=== PATIENT | female | born 1950 | race Caucasian/White ===

== ENCOUNTER 2017-03-21 20:47 | Emergency (ER) | payer MEDICARE, OTHER ==
[2017-03-21] MEDS ORDERED: KETOROLAC 60 MG/2 ML VIAL IM STA (21:16)
[2017-03-21] MEDS ORDERED: ORPHENADRINE 30 MG/ML 2 ML VIAL IM STA (21:16)
--- NOTE | 2017-03-21 21:26 | ED ---
General Adult HPI - General Chief complaint: Back Pain/Injury Stated complaint: Back/hip pain Time Seen by Provider: 03/21/17 20:55 Source: patient, family, RN notes reviewed Mode of arrival: wheelchair Limitations: no limitations - History of Present Illness Initial comments: 67-year-old female presents to the emergency room chief complaint of left-sided back pain. Last Saturday she felt at that she tweaked her back. She went to the clinic on Saturday morning and she was given a prescription for muscle relaxers. She then went to work and since she's been feeling worse. The pain is in the left side of her back. She states any movement any bending any twisting causes her pain. She states even hardly get out of bed due to the discomfort. She's had no fever chills nausea or vomiting with this. She's been taking Ultram and she cannot take anything stronger narcotic marcelino due to side effects that has not been helping her as much. She has been taking minimal Flexeril. They state that the pain is just to the point where she is having hard time even getting to the bathroom so they thought that they should be re-seen. There has been no falls. It does not radiate down the leg but does radiate into the left back. Patient denies any recent fever, chills, shortness of breath, chest pain, abdominal pain, nausea vomiting, numbness or tingling, dysuria or hematuria, constipation or diarrhea, headaches or visual changes, or any other current symptoms. - Related Data Home Medications Medication Instructions Recorded Confirmed Atorvastatin [Lipitor] 40 mg PO HS 03/21/17 03/21/17 Cyclobenzaprine [Flexeril] 5 mg PO BID PRN 03/21/17 03/21/17 Losartan Potassium [Cozaar] 25 mg PO DAILY 03/21/17 03/21/17 Naproxen [Naprosyn] 500 mg PO BID PRN 03/21/17 03/21/17 methylPREDNISolone [Medrol Dose See Taper PO DIRECTED 03/21/17 03/21/17 Pack] traMADol HCL [Ultram] 50 mg PO Q6HR PRN 03/21/17 03/21/17 Previous Rx's Medication Instructions Recorded Diazepam [Valium] 2 mg PO BID #10 tab 03/21/17 Orphenadrine [Norflex] 100 mg PO Q12H #10 tablet.er 03/21/17 traMADol HCl [Ultram] 50 mg PO Q6H PRN #20 tab 03/21/17 Allergies Allergy/AdvReac Type Severity Reaction Status Date / Time No Known Allergies Allergy Verified 03/21/17 21:20 Review of Systems ROS Statement: Those systems with pertinent positive or pertinent negative responses have been documented in the HPI. ROS Other: All systems not noted in ROS Statement are negative. Past Medical History Past Medical History: Hyperlipidemia, Hypertension History of Any Multi-Drug Resistant Organisms: None Reported Past Surgical History: Orthopedic Surgery, Tonsillectomy Additional Past Surgical History / Comment(s): parathyroid, right hand Past Psychological History: No Psychological Hx Reported Smoking Status: Never smoker Past Alcohol Use History: None Reported Past Drug Use History: None Reported General Exam - General Exam Comments Initial Comments: General: The patient is awake and alert, in no distress, and does not appear acutely ill. Eye: Pupils are equal, round and reactive to light, extra-ocular movements are intact; there is normal conjunctiva bilaterally. No signs of icterus. Ears, nose, mouth and throat: There are moist mucous membranes and no oral lesions. Neck: The neck is supple, there is no tenderness. Cardiovascular: There is a regular rate and rhythm. No murmur, rub or gallop is appreciated. Respiratory: Lungs are clear to auscultation, respirations are non-labored, breath sounds are equal. No wheezes, stridor, rales, or rhonchi. Gastrointestinal: Soft, non-distended, non-tender abdomen without masses or organomegaly noted. There is no rebound or guarding present. No CVA tenderness. Bowel sounds are unremarkable. Back: There is no tenderness to palpation in the midline. There is no obvious deformity. No rashes noted. Musculoskeletal: Normal ROM, no tenderness, There is no pedal edema. There is no calf tenderness or swelling. Sensation intact. Pulses equal bilaterally 2+. Negative straight leg raise bilaterally. Neurological: CN II-XII intact, There are no obvious motor or sensory deficits. Coordination appears grossly intact. Speech is normal. Skin: Skin is warm and dry and no rashes or lesions are noted. Psychiatric: Cooperative, appropriate mood & affect, normal judgment. Limitations: no limitations Course Vital Signs 03/21/17 20:57 Temperature 97.4 F L Pulse Rate 103 H Respiratory 20 Rate Blood Pressure 182/104 O2 Sat by Pulse 100 Oximetry Medical Decision Making - Medical Decision Making 67-year-old female presents emergency department with chief complaint of back pain. Patient does admit to history of this back pain in the past. At this time patient's pain has improved with the injections and CAT scan is reviewed. We discussed continued outpatient follow-up return parameters all questions. Patient stated she understood and she is agreement this plan. All questions have been answered. She'll be discharged. - Radiology Data Radiology results: report reviewed, image reviewed Disposition Clinical Impression: Strain of lumbar region Disposition: HOME SELF-CARE Condition: Stable Instructions: Acute Low Back Pain (ED) Additional Instructions: Please use medication as discussed. Please follow up with family doctor if symptoms have not improved over the next two days. Please return to the emergency room if your symptoms increase or worsen or for any other concerns. Prescriptions: Diazepam [Valium] 2 mg PO BID #10 tab Orphenadrine [Norflex] 100 mg PO Q12H #10 tablet.er traMADol HCl [Ultram] 50 mg PO Q6H PRN #20 tab PRN Reason: Pain Referrals: Eran Moreau MD [Primary Care Provider] - 1-2 days Time of Disposition: 22:05
--- NOTE | 2017-03-21 21:50 | CT ---
EXAMINATION TYPE: CT lumbar spine wo con DATE OF EXAM: 03/21/2017 9:35 PM COMPARISON: NONE HISTORY: Lower back pain radiating into left hip. CT DLP: 781.8 mGycm Automated exposure control for dose reduction was used. Unenhanced CT of the lumbar spine was performed. Bone and soft tissue window settings are submitted as well as coronal and sagittal reconstructions. FINDINGS: Visualized portions of the lungs are clear. There is mild atheromatous calcification of the aorta. Paraspinal soft tissues are otherwise unremark able. Vertebral body height and alignment are maintained. There is no spondylolysis or spondylolisthesis. T here is a mild levoscoliosis. At T12-L1, there is mild facet arthropathy. There is no significant compressive discopathy. Intervert ebral foramina are well maintained. L1-L2: There is mild facet arthropathy. There is mild gliosis deformans present. There is no signific ant compressive discopathy. Intervertebral foramina are well maintained. L2-L3: There is mild hypertrophic spondylosis. There is a diffuse disc displacement. Intervertebral f oramina are well maintained. There is mild facet arthropathy. There is no significant compressive dis copathy. L3-L4: There is mild disc space loss and hypertrophic spondylosis. The intervertebral foramina are we ll maintained. There is a diffuse disc displacement. There is mild hypertrophic changes in the facets . There is mild trefoiling of the thecal sac. L4-L5: There is hypertrophic changes in the facets. L5-S1: Is mild disc space loss. Intervertebral foramina are well maintained. There is a diffuse disc displacement. There is mild facet arthropathy. IMPRESSION: 1. NO ACUTE OSSEOUS LESION. 2. MILD, DIFFUSE FACET ARTHROPATHY. 3. MILD CENTRAL CANAL COMPROMISE, L3-4. 4. NO SIGNIFICANT COMPRESSIVE DISCOPATHY OR NEURAL COMPRESSION.
[2017-03-21 22:30] VITALS: BP 165/79; PULSE 87; RESP 18; TEMP 97.7
== END 2017-03-21 22:30 | disposition home or self-care (01) ==
LOC: EC 20:47
DX: S39.012A Strain of muscle, fascia and tendon of lower back, initial encounter (principal); E78.5 Hyperlipidemia, unspecified; I10 Essential (primary) hypertension; Z79.899 Other long term (current) drug therapy; X50.1XXA Overexertion from prolonged static or awkward postures, initial encounter
CPT/HCPCS: 72131; 99283; 96372 ×2; J2360; J1885

== ENCOUNTER → 2019-02-25 | Outpatient (CLI) | payer MEDICARE, OTHER ==
--- NOTE | 2019-02-25 16:32 | BD ---
EXAMINATION TYPE: Axial Bone Density DATE OF EXAM: 02/25/2019 COMPARISON: 2017 CLINICAL HISTORY: post menopausal Height: 5'4 Weight: 198 FRAX RISK QUESTIONS: History of Fracture in Adulthood: y Secondary Osteoporosis: Rheumatoid Arthritis: y RISK FACTORS HISTORY OF: History of Wrist Fracture: rt When: 1986 Family History of Osteoporosis: y Diet low in dairy products/other sources of calcium: y Postmenopausal woman: y MEDICATIONS: Additional Medications: blood pressure, cholesterol Additional History: EXAM MEASUREMENTS: Bone mineral densitometry was performed using the [employer]. Bone mineral density as measured about the Lumbar spine is: ----- L1-L4(G/cm2): 1.200 T Score Values are as follows: ----- L2: -0.1 ----- L3: 0.2 ----- L4: 0.4 ----- L1-L4:0.2 Bone mineral density has: Increased 1.8% since study of: 02/06/2017 Bone mineral density about the R hip (g/cm2): 0.886 Bone mineral density about the L hip (g/cm2): 0.849 T Score values are as follows: -----R Neck: -1.1 -----L Neck: -1.4 -----R Total: -0.2 -----L Total: -0.4 Bone mineral density has: Decreased -1.9% since study of: 02/06/2017 IMPRESSION: Osteopenia (T Score between -2.5 and -1). There is slightly increased risk of fracture and the patient may be considered for treatment. Re-Screen 2-5 years. NOTE: T-SCORE=SD OF THE YOUNG ADULT MEAN.
--- NOTE | 2019-02-26 11:15 | MM ---
Reason for exam: screening (asymptomatic). Last mammogram was performed 2 years and 1 month ago. History: Patient is postmenopausal. Family history of breast cancer in mother. Took estrogen for 2 years beginning at age 50. Took progesterone for 2 years. Physical Findings: A clinical breast exam by your physician is recommended on an annual basis and results should be correlated with mammographic findings. MG 3D Screening Mammo W/Cad Bilateral CC and MLO view(s) were taken. Prior study comparison: February 06, 2017, bilateral MG 3d screening mammo w/cad. January 26, 2016, bilateral MG 3d screening mammo w/cad. The breast tissue is heterogeneously dense. This may lower the sensitivity of mammography. There is no discrete abnormality. No significant changes when compared with prior studies. ASSESSMENT: Negative, BI-RAD 1 RECOMMENDATION: Routine screening mammogram of both breasts in 1 year.
== END | disposition home or self-care (01) ==
LOC: RADMAMWWP 09:34
PROVIDERS: ATTEND Family Medicine
DX: Z12.31 Encounter for screening mammogram for malignant neoplasm of breast (principal); M85.80 Other specified disorders of bone density and structure, unspecified site; Z78.0 Asymptomatic menopausal state; Z80.3 Family history of malignant neoplasm of breast
CPT/HCPCS: 77063; 77067; 77080